=== PATIENT | female | born 1995 | race Caucasian/White ===

== ENCOUNTER 2025-03-19 08:14 | Outpatient (CLI) | payer OTHER, SELFPAY ==
--- NOTE | 2025-03-19 08:29 | US_ITS ---
WS: [id number] US pelvic complete* 13466 HISTORY: PELVIC PAIN/HX OF L OVARIAN CYST COMPARISON: None available. Uterus: 9.1 cm x 4.8 cm x 5.0 cm. Normal size anteverted uterus. No fibroid or mass. Endometrium: 1.6 cm. Right ovary: 2.8 cm x 3.5 cm x 1.8 cm. Normal size and vascularity, no cystic or solid masses. Left ovary: 3.1 cm x 2.3 cm x 2.4 cm. Normal size and vascularity, no cystic or solid masses. No free fluid in the cul-de-sac. US/US pelvic complete* [id number] IMPRESSION: Normal transabdominal pelvic ultrasound. No ovarian cyst.
== END 2025-03-19 08:15 | disposition home or self-care (01) ==
LOC: RAD 08:20
PROVIDERS: PCP Family Medicine; Visit Provider Family Medicine
DX: R10.2 Pelvic and perineal pain (principal); N83.202 Unspecified ovarian cyst, left side
CPT/HCPCS: 76856